=== PATIENT | female | born 1945 | race Caucasian/White ===

== ENCOUNTER 2020-06-16 10:36 | Emergency (ER) | payer MEDICARE ==
[~2020-06-16] VITALS: Wt 68.0 kg
[2020-06-16] MEDS ORDERED: FUROSEMIDE40 MG PO (10:48)
[2020-06-16] MEDS ORDERED: ASPIRIN ADULT L81 M2 PO (10:49)
[2020-06-16] MEDS ORDERED: KLOR-CON M2020 ME1 PO (10:50)
[2020-06-16] MEDS ORDERED: CITALOPRAM20 MG PO (10:51)
[2020-06-16] MEDS ORDERED: BUSPAR5 MG PO (10:52)
[2020-06-16] MEDS ORDERED: METOPROLOL25 MG PO (10:52)
[2020-06-16] MEDS ORDERED: PRAVACHOL20 MG PO (10:53)
[2020-06-16] MEDS ORDERED: HYDROXYZINE HCL25 MG PO (10:54)
[2020-06-16] MEDS ORDERED: DONEPEZIL HYDROC5 MG PO (10:55)
[2020-06-16 11:07] LABS: BASO # 0.1 10*3/uL (0.0-0.1); BASO % 1.3 % (0.0-1.0); EOS # 0.2 10*3/uL (0.0-0.4); EOS % 2.2 % (1.0-4.0); HEMATOCRIT 42.2 % (37.0-47.0); LYMPH % 29.9 % (27.0-41.0); MEAN CELL VOLUME 88.7 fl (81.0-99.0); MEAN CORPUSCULAR HGB CONC 32.7 g/dl (33.0-37.0); MEAN PLATELET VOLUME 11.1 fl (9.6-12.3); MONO # 0.5 10*3/uL (0.1-1.0); MONO % 7.9 % (3.0-9.0); NEUT % 58.6 % (47.0-73.0); PLATELET COUNT AUTOMATED 211 10*3/uL (130-400); RED BLOOD COUNT 4.76 10*6/uL (4.10-5.10); RED CELL DISTRI WIDTH 11.9 % (0-14.5); WHITE BLOOD COUNT 6.8 10*3/uL (4.8-10.8)
[2020-06-16 11:22] LABS: ALBUMIN 3.4 gm/dl (3.1-4.5); ALKALINE PHOSPHATASE 78 U/L (45-117); BUN 13 mg/dl (7-24); CHLORIDE 105 mmol/L (98-107); POTASSIUM 3.4 mmol/L (3.5-5.1); SGOT/AST 17 IU/L (3-35); SGPT/ALT 21 U/L (12-78); SODIUM 139 mmol/L (136-145); TOTAL PROTEIN 6.4 gm/dL (6.4-8.2)
[2020-06-16 11:23] LABS: ACETAMINOPHEN (TYLENOL) < 5.0 ug/ml (10-30); ETHYL ALCOHOL < 3.0 mg/dl (<3)
[2020-06-16 12:14] LABS: BILIRUBIN Negative (Negative); BLOOD Negative (Negative); CLARITY Turbid (Clear); COLOR Yellow (Yellow); GLUCOSE Negative (Negative); KETONE Negative (Negative); LEUKO ESTERASE Negative (Negative); NITRITE Negative (Negative); PH 6.5 (4.5-8.0); SPECIFIC GRAVITY <= 1.005 (1.001-1.030); UROBILINOGEN 0.2 E.U./dl (0.0-1.0)
[2020-06-16 12:21] LABS: URINE AMPHETAMINES < 1000 (1000ng/ml); URINE BARBITURATES < 200 (200ng/ml); URINE BENZODIAZEPINES < 200 (200ng/ml); URINE CANNABINOIDS (THC) < 50 (50ng/ml); URINE COCAINE < 300 (300ng/ml); URINE METHADONE < 300 (300ng/ml); URINE OPIATES < 300 (300ng/ml)
[2020-06-16 12:23] LABS: URINE PHENCYCLIDINE < 25 (25ng/ml)
[2020-06-16 12:25] LABS: BACTERIA 2+; WBC 0-2 wbc/hpf (0-5)
== END 2020-06-16 15:10 | disposition designated cancer center or children's hospital (05) ==
LOC: ED 10:36
PROVIDERS: Physician Assistant
DX: F03.91 Unspecified dementia, unspecified severity, with behavioral disturbance (principal); Z79.82 Long term (current) use of aspirin; Z79.899 Other long term (current) drug therapy